=== PATIENT | female | born 1965 | race African-American/Black ===

== ENCOUNTER 2017-05-14 07:52 | Emergency (ER) | payer OTHER ==
[2017-05-14] MEDS ORDERED: Ketorolac Tromethamine 30 MG/ML VIAL ONE (08:22)
[2017-05-14 08:30] LABS: #Basophils 0.1 thou/uL (0.0-0.2); #Eosinphils 0.1 thou/uL (0.0-0.7); #Lymphocytes 2.2 thou/uL (1.20-3.40); #Monocytes 0.5 thou/uL (0.11-0.59); #Neutrophils 1.6 thou/uL (1.40-6.50); %Basophils 1.8 % (0.0-1.0); %Eosinophils 1.6 % (0.0-10.0); %Lymphocytes 48.2 % (21.0-51.0); %Monocytes 11.9 % (0.0-10.0); Hematocrit 40.5 % (36.0-47.0); Mean Platelet Volume 9.7 fL (7.4-10.4); Red Blood Cell (RBC) Count 5.02 mill/uL (4.20-5.40); White Blood Cell (WBC) Count 4.5 thou/uL (4.8-10.8)
[2017-05-14 08:43] LABS: ALT (SGPT) 21 U/L (8-55); AST (SGOT) 19 U/L (5-34); Alkaline Phosphatase 109 U/L (40-150); Anion Gap 13 mmol/L (10-20); BUN (Urea Nitrogen) 12 mg/dL (9.8-20.1); Bilirubin, Total 0.2 mg/dL (0.2-1.2); CK (CPK) 162 U/L (29-168); Calc. Creatinine Clearance 0 mL/min (70-130); Calcium 9.4 mg/dL (7.8-10.44); Carbon Dioxide 25 mmol/L (22-29); Chloride 105 mmol/L (98-107); Estimated GFR-MDRD Greater than 90; Globulin 2.9 g/dL (2.4-3.5); Protein, Total 6.8 g/dL (6.0-8.3)
== END 2017-05-14 09:35 | disposition home or self-care (01) ==
LOC: SCSER 07:52
DX: R25.2 Cramp and spasm (principal); M79.661 Pain in right lower leg; M79.662 Pain in left lower leg; I10 Essential (primary) hypertension; F41.9 Anxiety disorder, unspecified; F32.9 Major depressive disorder, single episode, unspecified; K21.9 Gastro-esophageal reflux disease without esophagitis; E78.5 Hyperlipidemia, unspecified; M19.90 Unspecified osteoarthritis, unspecified site; F20.9 Schizophrenia, unspecified
CPT/HCPCS: 80053; 80178; 82550; 85025; 85379; 96374; J1885

== ENCOUNTER 2017-08-05 16:55 | Emergency (ER) | payer OTHER ==
[2017-08-05 17:40] LABS: #Basophils 0.1 thou/uL (0.0-0.2); #Eosinphils 0.1 thou/uL (0.0-0.7); #Lymphocytes 3.3 thou/uL (1.20-3.40); #Monocytes 0.6 thou/uL (0.11-0.59); #Neutrophils 2.9 thou/uL (1.40-6.50); %Basophils 1.8 % (0.0-1.0); %Lymphocytes 47.7 % (21.0-51.0); %Monocytes 8.3 % (0.0-10.0); %Neutrophils 41.2 % (42.0-75.0); Hemoglobin 12.9 g/dL (12.0-16.0); Mean Corpuscular HGB CONC 32.5 g/dL (32.0-36.0); Mean Corpuscular Hemoglobin 27.1 pg (27.0-31.0); Mean Corpuscular Volume 83.4 fl (81.0-99.0); Platelet Count 224 thou/uL (130-400); RBC Distribution Width 12.4 % (11.5-14.5); Red Blood Cell (RBC) Count 4.76 mill/uL (4.20-5.40)
[2017-08-05 17:57] LABS: Anion Gap 13 mmol/L (10-20); BUN (Urea Nitrogen) 13 mg/dL (9.8-20.1); CK (CPK) 155 U/L (29-168); Calc. Creatinine Clearance 0 mL/min (70-130); Calcium 9.4 mg/dL (7.8-10.44); Carbon Dioxide 24 mmol/L (22-29); Chloride 104 mmol/L (98-107); Estimated GFR-MDRD 74; Glucose 112 mg/dL (70-105); Lipase 11 U/L (8-78); Potassium 3.3 mmol/L (3.5-5.1); Sodium 138 mmol/L (136-145)
[2017-08-05 17:58] LABS: CKMB 1.5 ng/mL (0-6.6); Troponin I Less than 0.010 ng/mL (< 0.028)
--- NOTE | 2017-08-05 18:16 | RAD ---
PORTABLE CHEST 08/05/17 HISTORY: Chest pain. Lungs are clear. Vascular markings are normal. Heart and mediastinum are unremarkable. IMPRESSION: Unremarkable portable chest. POS: [facility]
== END 2017-08-05 18:14 | disposition home or self-care (01) ==
LOC: SCSER 16:55
DX: R07.81 Pleurodynia (principal); M19.90 Unspecified osteoarthritis, unspecified site; K21.9 Gastro-esophageal reflux disease without esophagitis; E78.5 Hyperlipidemia, unspecified; I10 Essential (primary) hypertension; F41.9 Anxiety disorder, unspecified; F32.9 Major depressive disorder, single episode, unspecified; F20.9 Schizophrenia, unspecified
CPT/HCPCS: 36415; 71045; 80048; 82553; 83690; 84484; 85025; 85379; 93005

== ENCOUNTER 2017-10-06 08:01 | Outpatient (CLI) | payer OTHER | END 2017-10-06 08:02 | disposition home or self-care (01) | LOC: BICMAMMO 08:01 | PROVIDERS: ATTEND Family Medicine | DX: Z12.31 Encounter for screening mammogram for malignant neoplasm of breast (principal) | CPT/HCPCS: 77067 ==

== ENCOUNTER 2018-02-26 11:34 | Emergency (ER) | payer OTHER ==
--- NOTE | 2018-02-26 12:47 | ULT ---
ULTRASOUND WITH DOPPLER DUPLEX VENOUS LOWER EXTREMITIES BILATERAL: DATE: 02-26-18 HISTORY: 53-year-old female with bilateral lower extremity pain. TECHNIQUE: Color flow Doppler, spectral waveform analysis of pulsed Doppler, and bruno-scale imaging with chitra kwame and augmentation, were used to evaluate the bilateral common femoral, femoral, popliteal, soap tender ior tibial, and superficial femoral, veins; and the proximal portions of the profunda femoral and gre ater saphenous, veins. FINDINGS: There is normal compressibility, demonstration of blood flow by color Doppler and pulsed Doppler, and response to augmentation, in all interrogated veins. IMPRESSION: Negative. No deep vein thrombosis in the bilateral lower extremities. yessy POS: [facility]
[2018-02-26 13:02] LABS: Anion Gap 13 mmol/L (10-20); BUN (Urea Nitrogen) 16 mg/dL (9.8-20.1); CK (CPK) 186 U/L (29-168); Calc. Creatinine Clearance 0 mL/min (70-130); Calcium 9.3 mg/dL (7.8-10.44); Carbon Dioxide 25 mmol/L (22-29); Chloride 105 mmol/L (98-107); Estimated GFR-MDRD Greater than 90; Glucose 92 mg/dL (70-105); Sodium 140 mmol/L (136-145)
[2018-02-26 13:04] LABS: Potassium 2.8 mmol/L (3.5-5.1)
[2018-02-26] MEDS ORDERED: Potassium Chloride 20 MEQ TAB ONE (13:18)
== END 2018-02-26 13:24 | disposition home or self-care (01) ==
LOC: SCSER 11:34
DX: E87.6 Hypokalemia (principal)
CPT/HCPCS: 36415; 80048; 82550; 83735; 93970

== ENCOUNTER 2018-07-30 10:59 | Outpatient (CLI) | payer OTHER | END 2018-07-30 11:00 | disposition home or self-care (01) | PROVIDERS: ATTEND Family Medicine | DX: R07.9 Chest pain, unspecified (principal) | CPT/HCPCS: 93017 ==

== ENCOUNTER 2018-09-21 15:13 | Outpatient (CLI) | payer OTHER ==
--- NOTE | 2018-09-21 16:58 | MRI ---
MRI LUMBAR SPINE WITHOUT IV CONTRAST: HISTORY: Right-sided sciatica. FINDINGS: There is considerable motion artifact on numerous sequences, resulting in mage degradation. There ap pears to be generalized narrowing of the AP dimension of the spinal canal. The conus medullaris sameer on appears unremarkable, extending down to the L2 level. T12-L1/L1-L2: The disks demonstrate no evidence for focal herniation or canal or foraminal stenosis. L2-L3: There are some ligament and facet hypertrophic changes and some generalized disk bulging, hai ng with the overall narrow spinal canal, resulting in mild central canal and bilateral recess stenosi s, without significant foraminal stenosis. L3-L4: Prominent desiccation changes with broad-based disk bulging, resulting in severe central tavares l, lateral recess stenosis, moderate right foraminal stenosis, and moderate to severe left stenosis. L4-L5: Small annular fissure. There is generalized disk bulging with moderate to severe central can al and lateral recess and severe bilateral foraminal stenosis. L5-S1: There is some prominent left facet arthrosis and facet fluid. Mild central canal and lateral recess stenosis and severe bilateral foraminal stenosis. There are some mixed endplate, including s ome type I, changes at L3-L4. IMPRESSION: Multilevel variable severity canal, lateral recess, and foraminal stenosis, up to severe. POS: [facility]
== END 2018-09-21 15:14 | disposition home or self-care (01) ==
LOC: SCSMRI 15:13
PROVIDERS: ATTEND Orthopaedic Surgery
DX: M54.31 Sciatica, right side (principal); M48.061 Spinal stenosis, lumbar region without neurogenic claudication; M48.07 Spinal stenosis, lumbosacral region
CPT/HCPCS: 72148

== ENCOUNTER 2019-05-27 09:56 | Emergency (ER) | payer BC, OTHER | END 2019-05-27 10:38 | disposition home or self-care (01) | LOC: SCSER 09:56 | DX: J06.9 Acute upper respiratory infection, unspecified (principal); J04.0 Acute laryngitis; M19.90 Unspecified osteoarthritis, unspecified site; K21.9 Gastro-esophageal reflux disease without esophagitis; E78.5 Hyperlipidemia, unspecified; E78.00 Pure hypercholesterolemia, unspecified; I10 Essential (primary) hypertension; F41.9 Anxiety disorder, unspecified; F32.9 Major depressive disorder, single episode, unspecified; F20.9 Schizophrenia, unspecified | CPT/HCPCS: 99283 ==

== ENCOUNTER 2019-06-20 22:55 | Emergency (ER) | payer OTHER ==
[2019-06-20] MEDS ORDERED: Ketorolac Tromethamine 30 MG/ML VIAL ONE (23:27)
== END 2019-06-21 01:33 | disposition home or self-care (01) ==
LOC: ERS 22:55
DX: I47.1 Supraventricular tachycardia (principal); M62.838 Other muscle spasm; E78.5 Hyperlipidemia, unspecified; E78.00 Pure hypercholesterolemia, unspecified; F32.9 Major depressive disorder, single episode, unspecified; F41.9 Anxiety disorder, unspecified; F20.9 Schizophrenia, unspecified; I10 Essential (primary) hypertension; M19.012 Primary osteoarthritis, left shoulder; M19.011 Primary osteoarthritis, right shoulder; K21.9 Gastro-esophageal reflux disease without esophagitis; Z79.82 Long term (current) use of aspirin
CPT/HCPCS: 96374; J1885

== ENCOUNTER 2019-08-24 12:52 | Outpatient (CLI) | payer OTHER | END 2019-08-24 12:53 | disposition home or self-care (01) | PROVIDERS: ATTEND Family Medicine | DX: R00.2 Palpitations (principal) | CPT/HCPCS: 93225; 93226 ==

== ENCOUNTER 2021-11-01 08:51 | Outpatient (CLI) | payer OTHER | END 2021-11-01 08:52 | disposition home or self-care (01) | LOC: BICMAMMO 08:51 | PROVIDERS: ATTEND Student in an Organized Health Care Education/Training Program | DX: Z12.31 Encounter for screening mammogram for malignant neoplasm of breast (principal) | CPT/HCPCS: 77067 ==

== ENCOUNTER 2022-09-30 09:17 | Outpatient (CLI) | payer OTHER | END 2022-09-30 09:18 | disposition home or self-care (01) | LOC: SCSMRI 09:17 | PROVIDERS: ATTEND Nurse Practitioner Family | DX: M47.22 Other spondylosis with radiculopathy, cervical region (principal); M48.04 Spinal stenosis, thoracic region | CPT/HCPCS: 72141 ==

== ENCOUNTER 2022-10-14 14:56 | Outpatient (CLI) | payer OTHER ==
[2022-10-14 17:39] LABS: Anion Gap 17 mmol/L (10-20); BUN (Urea Nitrogen) 20 mg/dL (9.8-20.1); Calc. Creatinine Clearance 0 mL/min (70-130); Calcium 9.6 mg/dL (7.8-10.44); Carbon Dioxide 24 mmol/L (22-29); Chloride 107 mmol/L (98-107); Estimated GFR 90; Glucose 116 mg/dL (70-105); Potassium 3.6 mmol/L (3.5-5.1); Sodium 144 mmol/L (136-145)
== END 2022-10-14 14:57 | disposition home or self-care (01) ==
LOC: LABBT 14:56
PROVIDERS: ATTEND Surgery Surgery of the Hand
DX: Z01.818 Encounter for other preprocedural examination (principal)
CPT/HCPCS: 80048; 93005; 93010

== ENCOUNTER 2022-11-13 09:54 | Day surgery (SDC) | payer OTHER ==
[2022-11-11 11:47] VITALS: BMI 30.9
[2022-11-13] MEDS ORDERED: Betamet Acet/Betamet Na Ph 30 MG/5 ML VIAL ONE (11:48)
[2022-11-13] MEDS ORDERED: Lidocaine 1% (PF) 30 ML VIAL ONE (11:48)
[2022-11-13] MEDS ORDERED: Bupivacaine HCl 0.5%/Epinephrine 1:200,000/PF 30 ml Vial ONE (11:48)
[2022-11-13] MEDS ORDERED: Bupivacaine PF 0.5% 30 ML VIAL ONE (11:48)
[2022-11-13] MEDS ORDERED: EPINEPHrine 1 MG/ML AMP ONE (11:48)
[2022-11-13] MEDS ORDERED: CEFAZOLIN 2 GM VIAL ONE (12:04)
[2022-11-13] MEDS ORDERED: Sodium Chloride 0.9% 100 ML ONE (12:04)
[2022-11-13] MEDS ORDERED: Famotidine/PF 20 mg/2ml Vial ONE (12:16)
[2022-11-13] MEDS ORDERED: Ondansetron PF 4 MG/2 ML Vial ONE (13:10)
[2022-11-13] MEDS ORDERED: Dexamethasone 20 MG/5 ML VIAL ONE (13:10)
[2022-11-13] MEDS ORDERED: Lidocaine 1% PF 5 ML VIAL ONE (13:10)
[2022-11-13] MEDS ORDERED: PHENYLEPHRINE-NS 100 MCG/ML 10 ML SYRINGE ONE (13:10)
[2022-11-13] MEDS ORDERED: PROPOFOL 200 MG/20 ML VIAL ONE (13:10)
[2022-11-13] MEDS ORDERED: fentaNYL 50 mcg/mL 1 mL Vial ONE ×2 (13:21→13:49)
== END 2022-11-13 15:53 | disposition home or self-care (01) ==
LOC: SDC 09:54
PROVIDERS: ATTEND Surgery Surgery of the Hand
PROC: 3E0U33Z Introduction of Anti-inflammatory into Joints, Percutaneous Approach (ICD-10-PCS; principal; 2022-11-13)
PROC: 01N50ZZ Release Median Nerve, Open Approach (ICD-10-PCS; principal; 2022-11-13)
PROC: 3E0U3BZ Introduction of Anesthetic Agent into Joints, Percutaneous Approach (ICD-10-PCS; principal; 2022-11-13)
DX: G56.01 Carpal tunnel syndrome, right upper limb (principal); M18.11 Unilateral primary osteoarthritis of first carpometacarpal joint, right hand; I10 Essential (primary) hypertension; K21.9 Gastro-esophageal reflux disease without esophagitis; Z79.82 Long term (current) use of aspirin; Z79.899 Other long term (current) drug therapy; Z88.8 Allergy status to other drugs, medicaments and biological substances
CPT/HCPCS: C9352; J0171; J0702; J1100; J2001; J2405; J2704; J3010; J3490; S0020; S0028

== ENCOUNTER 2024-05-18 08:00 | Outpatient (CLI) | payer OTHER | END 2024-05-18 08:01 | disposition home or self-care (01) | LOC: BICMAMMO 08:00 | PROVIDERS: ATTEND Student in an Organized Health Care Education/Training Program | DX: Z12.31 Encounter for screening mammogram for malignant neoplasm of breast (principal); N63.11 Unspecified lump in the right breast, upper outer quadrant | CPT/HCPCS: 77067 ==

== ENCOUNTER 2024-06-04 07:46 | Outpatient (CLI) | payer OTHER | END 2024-06-04 07:47 | disposition home or self-care (01) | LOC: BICMAMMO 07:46 | PROVIDERS: ATTEND Student in an Organized Health Care Education/Training Program | DX: N63.11 Unspecified lump in the right breast, upper outer quadrant (principal) | CPT/HCPCS: G0279 ==

== ENCOUNTER → 2024-07-27 | Day surgery (SDC) | payer OTHER | LOC: MAMMO 07:24 | PROVIDERS: ATTEND Student in an Organized Health Care Education/Training Program | PROC: 0HB5XZX Excision of Chest Skin, External Approach, Diagnostic (ICD-10-PCS; principal; 2024-07-27) | DX: C50.411 Malignant neoplasm of upper-outer quadrant of right female breast (principal); Z88.8 Allergy status to other drugs, medicaments and biological substances | CPT/HCPCS: 19081; 88305; A4648 ==